=== PATIENT | male | born 1965 | race Caucasian/White ===

== ENCOUNTER 2022-12-02 05:33 | Inpatient (IN) | payer SELFPAY ==
[2022-12-02] MEDS ORDERED: Fentanyl 100 MCG/2 ML VIAL ONE ×2 (07:17→09:15)
[2022-12-02] MEDS ORDERED: Famotidine/PF 20 mg/2ml Vial ONE (07:17)
[2022-12-02] MEDS ORDERED: Midazolam HCl 2 mg/2 ml Vial ONE (07:21)
[2022-12-02] MEDS ORDERED: Levofloxacin 500 mg/D5W 100 ml Premix Bag ONE (07:28)
[2022-12-02] MEDS ORDERED: Albuterol HFA (OR) 200 PUFF INH ONE (07:34)
[2022-12-02] MEDS ORDERED: Succinylcholine Chloride 100 MG/5 ML SYRINGE FS ONE (07:34)
[2022-12-02] MEDS ORDERED: Ondansetron PF 4 MG/2 ML Vial ONE (07:34)
[2022-12-02] MEDS ORDERED: NEOSTIGMINE 3 MG/3 ML SYR 3 MG/3 ML SYRINGE ONE (07:34)
[2022-12-02] MEDS ORDERED: Lidocaine 1% PF 5 ML VIAL ONE (07:34)
[2022-12-02] MEDS ORDERED: Esmolol 100 MG/10 ML VIAL ONE (07:34)
[2022-12-02] MEDS ORDERED: Dexamethasone 20 MG/5 ML VIAL ONE (07:34)
[2022-12-02] MEDS ORDERED: Glycopyrrolate 0.2 MG/ML 5 ML SYRINGE ONE (07:34)
[2022-12-02] MEDS ORDERED: PROPOFOL 200 MG/20 ML VIAL ONE (07:34)
[2022-12-02] MEDS ORDERED: PHENYLEPHRINE-NS 100 MCG/ML 10 ML SYRINGE ONE (07:34)
[2022-12-02] MEDS ORDERED: Ketorolac Tromethamine 30 MG/ML VIAL ONE (07:34)
[2022-12-02] MEDS ORDERED: Metoclopramide HCl 10 MG/2 ML VIAL ONE (07:34)
[2022-12-02] MEDS ORDERED: Rocuronium Bromide 10 MG/ML (10ML VIAL) ONE (07:34)
[2022-12-02] MEDS ORDERED: Ondansetron HCl/PF 4 MG/2 ML Vial IVP PRN (09:03)
[2022-12-02] MEDS ORDERED: Promethazine HCl 25 MG/ML VIAL IM PRN (09:03)
[2022-12-02] MEDS ORDERED: Iopamidol-370 76% 500 ML 1 ML ONE (09:31)
[2022-12-02] MEDS ORDERED: Morphine 4 MG/ML VIAL SLOW IVP PRN (09:39)
[2022-12-02 14:36] VITALS: BMI 30.4
[2022-12-02] MEDS: Nicotine 14 MG PATCH TD SCH (14:53)
[2022-12-02] MEDS ORDERED: FLU VACC QS2022-23(6MOS UP)/PF 60 MCG/0.5 ML SYRINGE IM ONE (15:15)
[2022-12-02] MEDS ORDERED: cloNIDine 0.1 MG TAB PO PRN (15:36)
[2022-12-02 16:08] LABS: #Lymphocytes 0.6 thou/uL (1.20-3.40); #Monocytes 0.1 thou/uL (0.11-0.59); #Neutrophils 13.2 thou/uL (1.40-6.50); %Eosinophils 0.1 % (0.0-10.0); %Lymphocytes 4.1 % (21.0-51.0); %Monocytes 0.7 % (0.0-10.0); %Neutrophils 95.1 % (42.0-75.0); Hemoglobin 10.4 g/dL (14.0-18.0); Mean Corpuscular Hemoglobin 30.6 pg (27.0-31.0); Mean Corpuscular Volume 92.6 fl (78.0-98.0); Mean Platelet Volume 6.1 fL (7.4-10.4); Platelet Count 416 10x3/uL (130-400); RBC Distribution Width 11.3 % (11.5-14.5); Red Blood Cell (RBC) Count 3.42 mill/uL (4.70-6.10); White Blood Cell (WBC) Count 13.9 10x3/uL (4.8-10.8)
[2022-12-02 16:28] LABS: ALT (SGPT) 8 U/L (8-55); AST (SGOT) 12 U/L (5-34); Alkaline Phosphatase 59 U/L (40-110); Anion Gap 12 mmol/L (10-20); BUN (Urea Nitrogen) 13 mg/dL (8.4-25.7); Bilirubin, Total 0.4 mg/dL (0.2-1.2); Calc. Creatinine Clearance 107 mL/min (70-130); Carbon Dioxide 21 mmol/L (22-29); Chloride 104 mmol/L (98-107); Estimated GFR 84; Globulin 2.8 g/dL (2.4-3.5); Glucose 129 mg/dL (70-105); Potassium 3.6 mmol/L (3.5-5.1); Protein, Total 5.8 g/dL (6.0-8.3); Sodium 133 mmol/L (136-145)
[2022-12-02] MEDS: Trospium 20 MG TAB PO SCH (20:49)
[2022-12-03] MEDS: HYDROcodone/Acetaminophen 5/325 mg Tablet PO PRN ×2 (03:58→14:09)
[2022-12-03] MEDS: Trospium 20 MG TAB PO SCH (08:50)
[2022-12-03] MEDS: Nicotine 14 MG PATCH TD SCH (12:15)
[2022-12-03 12:29] VITALS: TEMP 98.6
[2022-12-03 16:50] VITALS: BP 148/74
== END 2022-12-03 20:23 | disposition home or self-care (01) | DRG 666 ==
LOC: SDC 05:33 → SJJU 13:21 → OBSVTOIN 12-03 12:30
PROVIDERS: ADMIT Urology; ATTEND Urology
PROC: 0TBB8ZZ Excision of Bladder, Via Natural or Artificial Opening Endoscopic (ICD-10-PCS; principal; 2022-12-02)
PROC: 0VB08ZZ Excision of Prostate, Via Natural or Artificial Opening Endoscopic (ICD-10-PCS; 2022-12-02)
PROC: 3E1K78Z Irrigation of Genitourinary Tract using Irrigating Substance, Via Natural or Artificial Opening (ICD-10-PCS; 2022-12-02)
DX: C67.2 Malignant neoplasm of lateral wall of bladder (principal); C79.82 Secondary malignant neoplasm of genital organs; Z23 Encounter for immunization; R31.0 Gross hematuria; I10 Essential (primary) hypertension; Z87.891 Personal history of nicotine dependence
CPT/HCPCS: 36415; 71260; 78306; 80053; 85025; 85610; 88307; 88341; 88342; 90471; 90686; A9503; G0008; J1100; J1885; J1956; J2250; J2405; J2704; J2765; J3010; Q9967; S0028

== ENCOUNTER 2022-12-30 17:36 | Inpatient (IN) | payer SELFPAY ==
[~2022-12-30 17:36] MED LIST: Iopamidol-370 76% 500 ML 1 ML ONE
[2022-12-30 18:21] LABS: #Basophils 0.1 thou/uL (0.0-0.2); #Eosinphils 0.3 thou/uL (0.0-0.7); #Lymphocytes 1.9 thou/uL (1.20-3.40); #Monocytes 0.9 thou/uL (0.11-0.59); #Neutrophils 8.3 thou/uL (1.40-6.50); %Basophils 0.8 % (0.0-1.0); %Eosinophils 2.5 % (0.0-10.0); %Lymphocytes 16.6 % (21.0-51.0); %Monocytes 7.7 % (0.0-10.0); %Neutrophils 72.4 % (42.0-75.0); Hemoglobin 8.8 g/dL (14.0-18.0); Mean Corpuscular HGB CONC 32.3 g/dL (32.0-36.0); Mean Corpuscular Hemoglobin 30.2 pg (27.0-31.0); Mean Corpuscular Volume 93.5 fl (78.0-98.0); Mean Platelet Volume 5.7 fL (7.4-10.4); Platelet Count 560 10x3/uL (130-400); RBC Distribution Width 12.6 % (11.5-14.5); Red Blood Cell (RBC) Count 2.91 mill/uL (4.70-6.10); White Blood Cell (WBC) Count 11.4 10x3/uL (4.8-10.8)
[2022-12-30 18:39] LABS: ALT (SGPT) 14 U/L (8-55); AST (SGOT) 17 U/L (5-34); Albumin 3.3 g/dL (3.5-5.0); Alkaline Phosphatase 81 U/L (40-110); Anion Gap 14 mmol/L (10-20); BUN (Urea Nitrogen) 17 mg/dL (8.4-25.7); Bilirubin, Total 0.2 mg/dL (0.2-1.2); Calc. Creatinine Clearance 0 mL/min (70-130); Calcium 8.8 mg/dL (7.8-10.44); Carbon Dioxide 24 mmol/L (22-29); Chloride 107 mmol/L (98-107); Estimated GFR 56; Globulin 3.7 g/dL (2.4-3.5); Glucose 77 mg/dL (70-105); Potassium 4.5 mmol/L (3.5-5.1); Sodium 140 mmol/L (136-145)
[2022-12-30] MEDS ORDERED: Ketorolac Tromethamine 30 MG/ML VIAL ONE (19:17)
[2022-12-30 20:53] LABS: Bacteria/HPF 2+ HPF (None Seen); Bilirubin Negative (Negative); Blood, Urine 3+ (Negative); Clarity Extra Turbid (Clear); Glucose, Urine (Dipstick) Normal (Negative); Ketone, Urine Negative (Negative); Leukocyte 500 Leu/uL (Negative); Nitrite 1+ (Negative); Protein, Urine (Dipstick) 300 mg/dL (Neg-Trace); RBC/HPF Greater than 50 HPF (0-3); Specific Gravity, Urine 1.027 (1.002-1.036); Urobilinogen Normal mg/dL (Less than 2); WBC/HPF Greater than 50 HPF (0-3); pH, Urine 6.5 (5.0-9.0)
[2022-12-30] MEDS ORDERED: Ondansetron ODT 4 MG TAB SL PRN (23:00)
[2022-12-30] MEDS ORDERED: Ondansetron PF 4 MG/2 ML Vial IVP PRN (23:00)
[2022-12-30] MEDS ORDERED: Acetaminophen 325 MG TAB PO PRN (23:00)
[2022-12-30 23:15] VITALS: BMI 30.4
[2022-12-31 06:49] LABS: #Eosinphils 0.7 thou/uL (0.0-0.7); #Lymphocytes 0.5 thou/uL (1.20-3.40); #Monocytes 0.8 thou/uL (0.11-0.59); #Neutrophils 8.4 thou/uL (1.40-6.50); %Basophils 0.3 % (0.0-1.0); %Eosinophils 6.6 % (0.0-10.0); %Lymphocytes 4.9 % (21.0-51.0); %Monocytes 7.3 % (0.0-10.0); %Neutrophils 80.9 % (42.0-75.0); Hemoglobin 8.4 g/dL (14.0-18.0); Mean Corpuscular HGB CONC 32.6 g/dL (32.0-36.0); Mean Corpuscular Hemoglobin 27.7 pg (27.0-31.0); Mean Corpuscular Volume 84.8 fl (78.0-98.0); Platelet Count 320 10x3/uL (130-400); RBC Distribution Width 14.8 % (11.5-14.5); Red Blood Cell (RBC) Count 3.02 mill/uL (4.70-6.10); White Blood Cell (WBC) Count 10.3 10x3/uL (4.8-10.8)
[2022-12-31 07:08] LABS: ALT (SGPT) Less than 7 U/L (8-55); AST (SGOT) 15 U/L (5-34); Albumin 3.4 g/dL (3.5-5.0); Alkaline Phosphatase 74 U/L (40-110); Anion Gap 10 mmol/L (10-20); BUN (Urea Nitrogen) 42 mg/dL (8.4-25.7); Bilirubin, Total 0.4 mg/dL (0.2-1.2); Calc. Creatinine Clearance 33 mL/min (70-130); Calcium 9.4 mg/dL (7.8-10.44); Carbon Dioxide 21 mmol/L (22-29); Chloride 114 mmol/L (98-107); Estimated GFR 21; Globulin 3.2 g/dL (2.4-3.5); Glucose 98 mg/dL (70-105); Iron 9 ug/dL (65-175); Iron Binding Capacity, Total 98 mcg/dL (261-462); Potassium 4.3 mmol/L (3.5-5.1); Protein, Total 6.6 g/dL (6.0-8.3); Sodium 141 mmol/L (136-145); Transferrin, Serum 78 mg/dL (174-364)
[2022-12-31] MEDS ORDERED: Polyethylene Glycol 3350 17 GM Packet PO SCH (10:00)
[2022-12-31 11:26] LABS: Chlam.trachomatis by PCR,Urine Not Detected (NotDetected); GC N.gonorrhoeae PCR,UrineVOID Not Detected (NotDetected)
[2022-12-31 11:50] LABS: Creatinine, Urine 52.1 mg/dL (63-166)
[2022-12-31] MEDS ORDERED: Acetaminophen 500 MG TAB PO PRN (16:25)
[2022-12-31] MEDS ORDERED: Ondansetron PF 4 MG/2 ML Vial IVP PRN (16:26)
[2022-12-31] MEDS ORDERED: Ondansetron ODT 4 MG TAB PO PRN (17:25)
[2022-12-31] MEDS: HYDROcodone/Acetaminophen 5/325 mg Tablet PO PRN (22:52)
[2022-12-31] MEDS: Melatonin 3 MG TAB PO PRN (22:53)
[2023-01-01] MEDS ORDERED: diphenhydrAMINE 25 MG CAP PO SCH ×2 (04:15→12:30)
[2023-01-01 06:31] LABS: #Basophils 0.1 thou/uL (0.0-0.2); #Eosinphils 0.3 thou/uL (0.0-0.7); #Lymphocytes 1.5 thou/uL (1.20-3.40); #Monocytes 0.9 thou/uL (0.11-0.59); #Neutrophils 7.3 thou/uL (1.40-6.50); %Basophils 0.7 % (0.0-1.0); %Eosinophils 2.8 % (0.0-10.0); %Lymphocytes 15.2 % (21.0-51.0); %Monocytes 9.3 % (0.0-10.0); Hemoglobin 8.6 g/dL (14.0-18.0); Mean Corpuscular HGB CONC 32.3 g/dL (32.0-36.0); Mean Corpuscular Hemoglobin 29.7 pg (27.0-31.0); Mean Corpuscular Volume 91.9 fl (78.0-98.0); Mean Platelet Volume 5.7 fL (7.4-10.4); Platelet Count 445 10x3/uL (130-400); RBC Distribution Width 12.5 % (11.5-14.5); Red Blood Cell (RBC) Count 2.89 mill/uL (4.70-6.10); White Blood Cell (WBC) Count 10.1 10x3/uL (4.8-10.8)
[2023-01-01 07:03] LABS: ALT (SGPT) 10 U/L (8-55); AST (SGOT) 13 U/L (5-34); Albumin 2.8 g/dL (3.5-5.0); Alkaline Phosphatase 74 U/L (40-110); Anion Gap 12 mmol/L (10-20); BUN (Urea Nitrogen) 13 mg/dL (8.4-25.7); Bilirubin, Total 0.2 mg/dL (0.2-1.2); Calc. Creatinine Clearance 84 mL/min (70-130); Calcium 8.6 mg/dL (7.8-10.44); Carbon Dioxide 25 mmol/L (22-29); Chloride 103 mmol/L (98-107); Estimated GFR 63; Globulin 3.4 g/dL (2.4-3.5); Glucose 93 mg/dL (70-105); Potassium 4.2 mmol/L (3.5-5.1); Protein, Total 6.2 g/dL (6.0-8.3); Sodium 136 mmol/L (136-145)
[2023-01-01] MEDS: HYDROcodone/Acetaminophen 5/325 mg Tablet PO PRN ×2 (07:52→15:58)
[2023-01-01] MEDS: Polyethylene Glycol 3350 17 GM Packet PO SCH (07:52)
[2023-01-01] MEDS ORDERED: diphenhydrAMINE 25 MG CAP PO PRN (19:38)
[2023-01-01] MEDS ORDERED: Acetaminophen/Codeine 30-300mg Tablet PO PRN (19:41)
[2023-01-01] MEDS: Melatonin 3 MG TAB PO PRN (21:19)
[2023-01-02 06:33] LABS: #Basophils 0.1 thou/uL (0.0-0.2); #Eosinphils 0.3 thou/uL (0.0-0.7); #Lymphocytes 2.1 thou/uL (1.20-3.40); #Neutrophils 7.8 thou/uL (1.40-6.50); %Basophils 0.5 % (0.0-1.0); %Eosinophils 2.8 % (0.0-10.0); %Lymphocytes 18.9 % (21.0-51.0); %Monocytes 8.8 % (0.0-10.0); Hemoglobin 8.9 g/dL (14.0-18.0); Mean Corpuscular HGB CONC 32.9 g/dL (32.0-36.0); Mean Corpuscular Hemoglobin 30.1 pg (27.0-31.0); Mean Corpuscular Volume 91.7 fl (78.0-98.0); Platelet Count 467 10x3/uL (130-400); RBC Distribution Width 12.5 % (11.5-14.5); Red Blood Cell (RBC) Count 2.95 mill/uL (4.70-6.10); White Blood Cell (WBC) Count 11.2 10x3/uL (4.8-10.8)
[2023-01-02 06:41] LABS: PTT 32.6 sec (22.9-36.1)
[2023-01-02 06:53] LABS: ALT (SGPT) 9 U/L (8-55); AST (SGOT) 15 U/L (5-34); Albumin 3.1 g/dL (3.5-5.0); Alkaline Phosphatase 72 U/L (40-110); Anion Gap 12 mmol/L (10-20); BUN (Urea Nitrogen) 12 mg/dL (8.4-25.7); Bilirubin, Total 0.2 mg/dL (0.2-1.2); Calc. Creatinine Clearance 79 mL/min (70-130); Calcium 8.7 mg/dL (7.8-10.44); Carbon Dioxide 23 mmol/L (22-29); Chloride 105 mmol/L (98-107); Estimated GFR 58; Globulin 3.4 g/dL (2.4-3.5); Glucose 87 mg/dL (70-105); Potassium 4.2 mmol/L (3.5-5.1); Protein, Total 6.5 g/dL (6.0-8.3); Sodium 136 mmol/L (136-145)
[2023-01-02] MEDS: Polyethylene Glycol 3350 17 GM Packet PO SCH (07:42)
[2023-01-02] MEDS ORDERED: Amlodipine 5 MG TAB PO SCH (10:15)
[2023-01-02] MEDS ORDERED: Ferrous Sulfate 325 MG TAB PO SCH (17:00)
[2023-01-02] MEDS ORDERED: diphenhydrAMINE 25 MG CAP PO SCH (21:30)
[2023-01-02] MEDS: Melatonin 3 MG TAB PO PRN (22:36)
[2023-01-03 07:34] LABS: #Eosinphils 0.2 thou/uL (0.0-0.7); #Lymphocytes 1.4 thou/uL (1.20-3.40); #Monocytes 0.7 thou/uL (0.11-0.59); #Neutrophils 6.4 thou/uL (1.40-6.50); %Basophils 0.5 % (0.0-1.0); %Eosinophils 2.2 % (0.0-10.0); %Lymphocytes 15.5 % (21.0-51.0); %Neutrophils 73.9 % (42.0-75.0); Mean Corpuscular HGB CONC 31.7 g/dL (32.0-36.0); Mean Corpuscular Hemoglobin 29.4 pg (27.0-31.0); Mean Corpuscular Volume 92.8 fl (78.0-98.0); Mean Platelet Volume 5.7 fL (7.4-10.4); Platelet Count 462 10x3/uL (130-400); RBC Distribution Width 12.4 % (11.5-14.5); Red Blood Cell (RBC) Count 3.05 mill/uL (4.70-6.10); White Blood Cell (WBC) Count 8.7 10x3/uL (4.8-10.8)
[2023-01-03] MEDS: Polyethylene Glycol 3350 17 GM Packet PO SCH (07:57)
[2023-01-03 08:02] LABS: ALT (SGPT) 8 U/L (8-55); AST (SGOT) 16 U/L (5-34); Alkaline Phosphatase 70 U/L (40-110); Anion Gap 13 mmol/L (10-20); BUN (Urea Nitrogen) 16 mg/dL (8.4-25.7); Bilirubin, Total 0.2 mg/dL (0.2-1.2); Calc. Creatinine Clearance 79 mL/min (70-130); Calcium 8.9 mg/dL (7.8-10.44); Carbon Dioxide 25 mmol/L (22-29); Chloride 103 mmol/L (98-107); Estimated GFR 58; Globulin 3.6 g/dL (2.4-3.5); Glucose 89 mg/dL (70-105); Protein, Total 6.6 g/dL (6.0-8.3); Sodium 137 mmol/L (136-145)
[2023-01-03 08:06] VITALS: BP 151/69; TEMP 98.1
[2023-01-03] MEDS ORDERED: Amlodipine 5 MG TAB PO SCH (09:00)
== END 2023-01-03 11:04 | disposition home or self-care (01) | DRG 687 ==
LOC: ERS 17:36 → T4-B 22:46 → OBSVTOIN 12-31 14:47
PROVIDERS: ADMIT Student in an Organized Health Care Education/Training Program; ATTEND Family Medicine
DX: C67.9 Malignant neoplasm of bladder, unspecified (principal); C77.5 Secondary and unspecified malignant neoplasm of intrapelvic lymph nodes; N13.6 Pyonephrosis; Z20.822 Contact with and (suspected) exposure to COVID-19; N45.1 Epididymitis; F17.210 Nicotine dependence, cigarettes, uncomplicated; I10 Essential (primary) hypertension; B96.5 Pseudomonas (aeruginosa) (mallei) (pseudomallei) as the cause of diseases classified elsewhere; D50.9 Iron deficiency anemia, unspecified; D63.8 Anemia in other chronic diseases classified elsewhere; Z79.899 Other long term (current) drug therapy; Z98.890 Other specified postprocedural states
CPT/HCPCS: 36415; 74177; 76870; 80053; 81003; 81015; 82570; 82728; 83540; 83550; 84300; 84466; 85025; 85610; 85730; 87077; 87086; 87186; 87491; 87591; 93976; 96372; 96374; G0378; J1650; J1885; Q9967; U0003; U0005

== ENCOUNTER 2023-01-06 07:02 | Day surgery (SDC) | payer SELFPAY ==
[2023-01-03 09:02] VITALS: BMI 30.3
[2023-01-06] MEDS ORDERED: Fentanyl 100 MCG/2 ML VIAL ONE (07:44)
[2023-01-06] MEDS ORDERED: Midazolam HCl 2 mg/2 ml Vial ONE (07:44)
[2023-01-06] MEDS ORDERED: Lidocaine 1% PF 5 ML VIAL ONE (07:45)
[2023-01-06] MEDS ORDERED: Sodium Bicarbonate 2.5 MEQ/5 ML VIAL ONE (07:45)
[2023-01-06] MEDS ORDERED: diphenhydrAMINE 25 MG CAP ONE (09:35)
[2023-01-06 09:55] VITALS: BP 125/74; TEMP 99
[2023-01-06] MEDS ORDERED: Iopamidol 300 61% 100 ML VIAL FS ONE (10:53)
== END 2023-01-06 11:40 | disposition home or self-care (01) ==
LOC: SPEC 07:02
PROVIDERS: ATTEND Urology
PROC: 0T9130Z Drainage of Left Kidney with Drainage Device, Percutaneous Approach (ICD-10-PCS; principal; 2023-01-06)
DX: N13.1 Hydronephrosis with ureteral stricture, not elsewhere classified (principal); C67.9 Malignant neoplasm of bladder, unspecified; N13.4 Hydroureter; I10 Essential (primary) hypertension; F17.210 Nicotine dependence, cigarettes, uncomplicated; N45.1 Epididymitis; N17.9 Acute kidney failure, unspecified; D64.9 Anemia, unspecified; Z79.2 Long term (current) use of antibiotics; Z79.899 Other long term (current) drug therapy
CPT/HCPCS: 50430; 50432; 74485; C1729; J2250; J3010

== ENCOUNTER 2023-01-19 21:09 | Emergency (ER) | payer SELFPAY ==
[2023-01-19 23:30] LABS: #Eosinphils 0.5 thou/uL (0.0-0.7); #Lymphocytes 1.5 thou/uL (1.20-3.40); #Monocytes 0.9 thou/uL (0.11-0.59); #Neutrophils 10.2 thou/uL (1.40-6.50); %Basophils 0.3 % (0.0-1.0); %Eosinophils 3.8 % (0.0-10.0); %Lymphocytes 11.5 % (21.0-51.0); %Monocytes 6.8 % (0.0-10.0); %Neutrophils 77.6 % (42.0-75.0); Hemoglobin 8.2 g/dL (14.0-18.0); Mean Corpuscular Hemoglobin 27.6 pg (27.0-31.0); Mean Corpuscular Volume 88.9 fl (78.0-98.0); Mean Platelet Volume 5.7 fL (7.4-10.4); Platelet Count 556 10x3/uL (130-400); RBC Distribution Width 13.2 % (11.5-14.5); Red Blood Cell (RBC) Count 2.96 mill/uL (4.70-6.10); White Blood Cell (WBC) Count 13.2 10x3/uL (4.8-10.8)
[2023-01-19 23:52] LABS: ALT (SGPT) 12 U/L (8-55); AST (SGOT) 18 U/L (5-34); Albumin 2.9 g/dL (3.5-5.0); Alkaline Phosphatase 74 U/L (40-110); Anion Gap 13 mmol/L (10-20); BUN (Urea Nitrogen) 18 mg/dL (8.4-25.7); Bilirubin, Total Less than 0.2 mg/dL (0.2-1.2); Calc. Creatinine Clearance 0 mL/min (70-130); Calcium 8.8 mg/dL (7.8-10.44); Carbon Dioxide 24 mmol/L (22-29); Chloride 105 mmol/L (98-107); Estimated GFR 76; Globulin 3.6 g/dL (2.4-3.5); Glucose 110 mg/dL (70-105); Potassium 4.2 mmol/L (3.5-5.1); Protein, Total 6.5 g/dL (6.0-8.3); Sodium 138 mmol/L (136-145)
[2023-01-20 00:57] LABS: Bacteria/HPF 3+ HPF (None Seen); Bilirubin 1+ (Negative); Blood, Urine 3+ (Negative); Clarity Clear (Clear); Glucose, Urine (Dipstick) Normal (Negative); Ketone, Urine Negative (Negative); Leukocyte 500 Leu/uL (Negative); Nitrite 2+ (Negative); Protein, Urine (Dipstick) 70 mg/dL (Neg-Trace); RBC/HPF Greater than 50 HPF (0-3); Specific Gravity, Urine 1.016 (1.002-1.036); Squamous Epithelial None Seen HPF (0-3); Urobilinogen Normal mg/dL (Less than 2); WBC/HPF 21-50 HPF (0-3); pH, Urine 6.5 (5.0-9.0)
== END 2023-01-19 22:15 | disposition home or self-care (01) ==
LOC: ERS 21:09
DX: N30.00 Acute cystitis without hematuria (principal); N43.3 Hydrocele, unspecified; R60.0 Localized edema
CPT/HCPCS: 36415; 76870; 80053; 81003; 81015; 85025; 93976

== ENCOUNTER → 2023-02-27 | Day surgery (SDC) | payer SELFPAY | END | disposition home or self-care (01) | LOC: SPEC 08:45 | PROVIDERS: ATTEND Urology | PROC: 0T25X0Z Change Drainage Device in Kidney, External Approach (ICD-10-PCS; principal; 2023-02-27) | DX: Z46.6 Encounter for fitting and adjustment of urinary device (principal); N32.9 Bladder disorder, unspecified; N13.1 Hydronephrosis with ureteral stricture, not elsewhere classified | CPT/HCPCS: 50431; 50435 ==

== ENCOUNTER 2023-03-17 10:24 | Inpatient (IN) | payer SELFPAY ==
[2023-03-17 11:29] LABS: Hemoglobin 7.3 g/dL (14.0-18.0); Mean Corpuscular HGB CONC 31.8 g/dL (32.0-36.0); Mean Corpuscular Volume 84.9 fl (78.0-98.0); Mean Platelet Volume 7.2 fL (7.4-10.4); Platelet Count 266 10x3/uL (130-400); RBC Distribution Width 18.9 % (11.5-14.5); Red Blood Cell (RBC) Count 2.71 mill/uL (4.70-6.10); White Blood Cell (WBC) Count 20.1 10x3/uL (4.8-10.8)
[2023-03-17 11:47] LABS: ALT (SGPT) 37 U/L (8-55); AST (SGOT) 31 U/L (5-34); Albumin 2.6 g/dL (3.5-5.0); Alkaline Phosphatase 137 U/L (40-110); Anion Gap 17 mmol/L (10-20); BUN (Urea Nitrogen) 31 mg/dL (8.4-25.7); Bilirubin, Total 1.3 mg/dL (0.2-1.2); Calc. Creatinine Clearance 0 mL/min (70-130); Calcium 7.8 mg/dL (7.8-10.44); Carbon Dioxide 20 mmol/L (22-29); Chloride 103 mmol/L (98-107); Estimated GFR 22; Globulin 2.9 g/dL (2.4-3.5); Glucose 86 mg/dL (70-105); Potassium 3.6 mmol/L (3.5-5.1); Protein, Total 5.5 g/dL (6.0-8.3); Sodium 136 mmol/L (136-145)
[2023-03-17 12:09] LABS: CKMB 0.4 ng/mL (0-6.6)
[2023-03-17 12:15] LABS: Band 55 % (5-11); Hypochromia SLIGHT = 6-15 cells (100X) (0-5/hpf); Lymphocytes 2 % (21-51); MDiff Complete? YES; Metamyelocyte 2 % (0-0); Neutrophil 41 % (42-75); Platelet Morphology Comment Appears Adequate; Polychromasia SLIGHT = 2-3 cells (100X) (0-2/hpf); Vacuoles MODERATE
[2023-03-17] MEDS ORDERED: Morphine 2 MG/ML VIAL ONE (13:09)
[2023-03-17] MEDS ORDERED: Cefepime 2 GM VIAL ONE (13:46)
[2023-03-17] MEDS ORDERED: Vancomycin 1 GM/200 ML (FROZEN) BAG ONE (14:50)
[2023-03-17] MEDS ORDERED: Vancomycin 1 GM in Premix Bag 1 BAG IVPB SCH (15:00)
[2023-03-17] MEDS ORDERED: Sodium Chloride 0.9% 1,000 ML IV SCH (17:00)
[2023-03-17] MEDS ORDERED: Ondansetron ODT 4 MG TAB PO PRN (17:06)
[2023-03-17] MEDS ORDERED: Acetaminophen 325 MG TAB PO PRN (17:06)
[2023-03-17] MEDS ORDERED: Senokot S 8.6-50 MG TAB PO PRN (17:06)
[2023-03-17] MEDS ORDERED: Bisacodyl 5 MG TAB PO PRN (17:06)
[2023-03-17] MEDS ORDERED: Ondansetron PF 4 MG/2 ML Vial IVP PRN (17:06)
[2023-03-17 17:33] VITALS: BMI 34.9
[2023-03-17 18:28] LABS: Anisocytosis SLIGHT = 6-15 cells (100X) (0-5/hpf); Band 35 % (5-11); Eosinophils 1 % (0-10); Hemoglobin 6.5 g/dL (14.0-18.0); Lymphocytes 3 % (21-51); MDiff Complete? YES; Mean Corpuscular HGB CONC 32.8 g/dL (32.0-36.0); Mean Corpuscular Hemoglobin 27.9 pg (27.0-31.0); Mean Corpuscular Volume 85.1 fl (78.0-98.0); Metamyelocyte 4 % (0-0); Monocytes 1 % (0-10); Neutrophil 56 % (42-75); Platelet Count 219 10x3/uL (130-400); Platelet Morphology Comment Appears Adequate; Polychromasia MODERATE = 3-4 cells (100X) (0-2/hpf); Red Blood Cell (RBC) Count 2.34 mill/uL (4.70-6.10); Toxic Granulation SLIGHT; Vacuoles SLIGHT
[2023-03-17] MEDS: Sodium Chloride 0.9% 1,000 ML IV SCH (18:46)
[2023-03-17] MEDS: Tamsulosin HCl 0.4 MG CAP PO SCH (20:18)
[2023-03-17 20:30] LABS: Bilirubin Moderate (Negative); Blood, Urine Large (Negative); Glucose, Urine (Dipstick) Negative (Negative); Ketone, Urine Trace mg/dL (Negative); Leukocyte Large (Negative); Nitrite Positive (Negative); Protein, Urine (Dipstick) > or equal to 300 mg/dL (Neg-Trace)
[2023-03-17 20:41] LABS: Clarity Cloudy (Clear)
[2023-03-17 20:42] LABS: CAUTI Indications for Culture Acute Hematuria; RBC/HPF Greater than 50 HPF (0-3); WBC/HPF Greater Than 50 HPF (0-3)
[2023-03-17 20:43] LABS: Bacteria/HPF 4+ HPF (None Seen)
[2023-03-17 20:44] LABS: Squamous Epithelial 0-3 HPF (0-3)
[2023-03-17 20:45] LABS: Urine Culture Reflex Yes Yes
[2023-03-17 21:22] LABS: Hemoglobin 6.4 g/dL (14.0-18.0); Mean Corpuscular HGB CONC 32.5 g/dL (32.0-36.0); Mean Corpuscular Hemoglobin 27.7 pg (27.0-31.0); Mean Corpuscular Volume 85.2 fl (78.0-98.0); Mean Platelet Volume 6.9 fL (7.4-10.4); Platelet Count 221 10x3/uL (130-400); White Blood Cell (WBC) Count 26.3 10x3/uL (4.8-10.8)
[2023-03-17 21:23] LABS: Band 46 % (5-11); Hypochromia SLIGHT = 6-15 cells (100X) (0-5/hpf); Lymphocytes 2 % (21-51); MDiff Complete? YES; Metamyelocyte 1 % (0-0); Monocytes 7 % (0-10); Neutrophil 43 % (42-75); Platelet Morphology Comment Appears Adequate; Promyelocytes 1 % (0-0)
[2023-03-17 22:09] LABS: CKMB 0.5 ng/mL (0-6.6)
[2023-03-18] MEDS: Sodium Chloride 0.9% 1,000 ML IV SCH ×2 (01:07→09:18)
[2023-03-18] MEDS ORDERED: Cefepime 1 GM in Sodium Chloride 0.9% 100 ML IVPB SCH ×2 (02:00→13:00)
[2023-03-18 02:19] LABS: Hemoglobin 6.9 g/dL (14.0-18.0); Platelet Count 229 10x3/uL (130-400)
[2023-03-18 02:50] LABS: Potassium 4.2 mmol/L (3.5-5.1); Sodium 137 mmol/L (136-145)
[2023-03-18 02:51] LABS: ALT (SGPT) 36 U/L (8-55); AST (SGOT) 29 U/L (5-34); Albumin 2.3 g/dL (3.5-5.0); Alkaline Phosphatase 137 U/L (40-110); Anion Gap 14 mmol/L (10-20); BUN (Urea Nitrogen) 39 mg/dL (8.4-25.7); Calc. Creatinine Clearance 42 mL/min (70-130); Calcium 7.7 mg/dL (7.8-10.44); Carbon Dioxide 21 mmol/L (22-29); Chloride 106 mmol/L (98-107); Estimated GFR 23; Globulin 2.7 g/dL (2.4-3.5); Glucose 85 mg/dL (70-105)
[2023-03-18 02:58] LABS: Band 37 % (5-11); Hemoglobin 7.2 g/dL (14.0-18.0); Hypochromia SLIGHT = 6-15 cells (100X) (0-5/hpf); MDiff Complete? YES; Mean Corpuscular HGB CONC 33.2 g/dL (32.0-36.0); Mean Corpuscular Hemoglobin 28.2 pg (27.0-31.0); Mean Corpuscular Volume 85.1 fl (78.0-98.0); Mean Platelet Volume 7.1 fL (7.4-10.4); Monocytes 5 % (0-10); Neutrophil 58 % (42-75); Platelet Count 227 10x3/uL (130-400); Platelet Morphology Comment Appears Adequate; RBC Distribution Width 18.9 % (11.5-14.5); Red Blood Cell (RBC) Count 2.54 mill/uL (4.70-6.10); White Blood Cell (WBC) Count 27.3 10x3/uL (4.8-10.8)
[2023-03-18] MEDS: Acetaminophen/Codeine 30-300mg Tablet PO PRN (09:13)
[2023-03-18] MEDS: predniSONE 5 MG TAB PO SCH (09:14)
[2023-03-18 10:19] LABS: Hemoglobin 8.1 g/dL (14.0-18.0); Mean Corpuscular HGB CONC 33.7 g/dL (32.0-36.0); Mean Corpuscular Hemoglobin 28.8 pg (27.0-31.0); Mean Corpuscular Volume 85.3 fl (78.0-98.0); Platelet Count 230 10x3/uL (130-400); RBC Distribution Width 18.4 % (11.5-14.5); Red Blood Cell (RBC) Count 2.81 mill/uL (4.70-6.10); White Blood Cell (WBC) Count 28.2 10x3/uL (4.8-10.8)
[2023-03-18 11:07] LABS: Band 42 % (5-11); Dohle Bodies SLIGHT; Lymphocytes 2 % (21-51); MDiff Complete? YES; Monocytes 1 % (0-10); Neutrophil 55 % (42-75); Platelet Morphology Comment Appears Adequate; Polychromasia SLIGHT = 2-3 cells (100X) (0-2/hpf); Toxic Granulation SLIGHT; Vacuoles SLIGHT
[2023-03-18] MEDS: metroNIDAZOLE 500 MG in Premix Bag 1 BAG IVPB SCH ×2 (13:06→22:49)
[2023-03-18 14:49] LABS: Creatinine, Urine 34.85 mg/dL (63-166)
[2023-03-18] MEDS: Albumin 25% 25 GM/100 ML BOT IVPB SCH ×2 (15:49→20:39)
[2023-03-18 17:22] LABS: Hemoglobin 7.7 g/dL (14.0-18.0)
[2023-03-18] MEDS: Tamsulosin HCl 0.4 MG CAP PO SCH (20:39)
[2023-03-19] MEDS: Cefepime 2 GM in Sodium Chloride 0.9% 100 ML IVPB SCH ×2 (00:21→12:00)
[2023-03-19] MEDS: Acetaminophen/Codeine 30-300mg Tablet PO PRN ×3 (00:25→20:10)
[2023-03-19 04:58] LABS: ALT (SGPT) 27 U/L (8-55); AST (SGOT) 23 U/L (5-34); Albumin 2.6 g/dL (3.5-5.0); Alkaline Phosphatase 160 U/L (40-110); Anion Gap 13 mmol/L (10-20); BUN (Urea Nitrogen) 46 mg/dL (8.4-25.7); Bilirubin, Total 0.7 mg/dL (0.2-1.2); Calc. Creatinine Clearance 52 mL/min (70-130); Carbon Dioxide 18 mmol/L (22-29); Chloride 110 mmol/L (98-107); Estimated GFR 30; Globulin 2.5 g/dL (2.4-3.5); Glucose 112 mg/dL (70-105); Magnesium 2.4 mg/dL (1.6-2.6); Potassium 3.6 mmol/L (3.5-5.1); Protein, Total 5.1 g/dL (6.0-8.3); Sodium 137 mmol/L (136-145)
[2023-03-19 05:11] LABS: Band 14 % (5-11); Eosinophils 1 % (0-10); Lymphocytes 10 % (21-51); MDiff Complete? YES; Mean Corpuscular HGB CONC 33.6 g/dL (32.0-36.0); Mean Corpuscular Hemoglobin 28.5 pg (27.0-31.0); Mean Corpuscular Volume 84.9 fl (78.0-98.0); Mean Platelet Volume 7.4 fL (7.4-10.4); Monocytes 2 % (0-10); Neutrophil 73 % (42-75); Platelet Count 239 10x3/uL (130-400); Platelet Morphology Comment Appears Adequate; RBC Distribution Width 18.3 % (11.5-14.5); RBC Morphology Normal; White Blood Cell (WBC) Count 24.2 10x3/uL (4.8-10.8)
[2023-03-19] MEDS: metroNIDAZOLE 500 MG in Premix Bag 1 BAG IVPB SCH (05:19)
[2023-03-19] MEDS ORDERED: Albumin 25% 25 GM/100 ML BOT IVPB SCH (06:45)
[2023-03-19 07:58] LABS: Iron 68 ug/dL (65-175); Iron Binding Capacity, Total 199 mcg/dL (261-462)
[2023-03-19] MEDS: Sodium Bicarbonate Tab 325 MG TAB PO SCH ×3 (08:23→20:09)
[2023-03-19] MEDS: predniSONE 5 MG TAB PO SCH (08:23)
[2023-03-19] MEDS: Albumin 25% 25 GM/100 ML BOT IVPB SCH ×3 (11:58→23:07)
[2023-03-19] MEDS: Temazepam 15 MG CAP PO PRN (20:09)
[2023-03-19] MEDS: Tamsulosin HCl 0.4 MG CAP PO SCH (20:10)
[2023-03-19] MEDS ORDERED: fentaNYL 50 mcg/hour Patch TD SCH (21:00)
[2023-03-20] MEDS: Cefepime 2 GM in Sodium Chloride 0.9% 100 ML IVPB SCH ×2 (00:07→13:17)
[2023-03-20 05:02] LABS: Hemoglobin 7.8 g/dL (14.0-18.0); Mean Corpuscular HGB CONC 32.4 g/dL (32.0-36.0); Mean Corpuscular Hemoglobin 27.6 pg (27.0-31.0); Mean Corpuscular Volume 85.1 fl (78.0-98.0); Mean Platelet Volume 7.3 fL (7.4-10.4); Platelet Count 263 10x3/uL (130-400); RBC Distribution Width 18.6 % (11.5-14.5); Red Blood Cell (RBC) Count 2.82 mill/uL (4.70-6.10); White Blood Cell (WBC) Count 13.2 10x3/uL (4.8-10.8)
[2023-03-20] MEDS: Albumin 25% 25 GM/100 ML BOT IVPB SCH ×3 (05:11→22:22)
[2023-03-20 05:14] LABS: Anion Gap 14 mmol/L (10-20); BUN (Urea Nitrogen) 36 mg/dL (8.4-25.7); Calc. Creatinine Clearance 65 mL/min (70-130); Calcium 8.3 mg/dL (7.8-10.44); Carbon Dioxide 19 mmol/L (22-29); Chloride 110 mmol/L (98-107); Estimated GFR 39; Glucose 85 mg/dL (70-105); Potassium 3.8 mmol/L (3.5-5.1); Sodium 139 mmol/L (136-145)
[2023-03-20 05:26] LABS: Band 4 % (5-11); Eosinophils 2 % (0-10); Lymphocytes 5 % (21-51); MDiff Complete? YES; Monocytes 1 % (0-10); Myelocyte 1 % (0-0); Neutrophil 87 % (42-75)
[2023-03-20] MEDS: Sodium Bicarbonate Tab 325 MG TAB PO SCH ×3 (08:34→20:29)
[2023-03-20] MEDS: predniSONE 5 MG TAB PO SCH (08:34)
[2023-03-20] MEDS: Acetaminophen/Codeine 30-300mg Tablet PO PRN ×2 (11:28→20:27)
[2023-03-20] MEDS ORDERED: Dextrose 5%-Lactated Ringers 1,000 ML IV SCH (13:15)
[2023-03-20] MEDS ORDERED: Megestrol Acetate 800 MG/20 ML UDCUP PO SCH (13:15)
[2023-03-20] MEDS: Tamsulosin HCl 0.4 MG CAP PO SCH (20:27)
[2023-03-20] MEDS: Temazepam 15 MG CAP PO PRN (22:22)
[2023-03-21] MEDS: Cefepime 2 GM in Sodium Chloride 0.9% 100 ML IVPB SCH ×2 (02:53→12:35)
[2023-03-21 04:36] LABS: Hemoglobin 8.2 g/dL (14.0-18.0); Mean Corpuscular HGB CONC 32.1 g/dL (32.0-36.0); Mean Corpuscular Hemoglobin 27.5 pg (27.0-31.0); Mean Corpuscular Volume 85.6 fl (78.0-98.0); Mean Platelet Volume 7.5 fL (7.4-10.4); Platelet Count 236 10x3/uL (130-400); Red Blood Cell (RBC) Count 2.98 mill/uL (4.70-6.10)
[2023-03-21 04:52] LABS: Anion Gap 14 mmol/L (10-20); BUN (Urea Nitrogen) 32 mg/dL (8.4-25.7); Calc. Creatinine Clearance 83 mL/min (70-130); Calcium 8.5 mg/dL (7.8-10.44); Carbon Dioxide 20 mmol/L (22-29); Chloride 110 mmol/L (98-107); Estimated GFR 53; Glucose 114 mg/dL (70-105); Potassium 3.6 mmol/L (3.5-5.1); Sodium 140 mmol/L (136-145)
[2023-03-21 05:43] LABS: Anisocytosis SLIGHT = 6-15 cells (100X) (0-5/hpf); Eosinophils 5 % (0-10); Lymphocytes 10 % (21-51); MDiff Complete? YES; Monocytes 1 % (0-10); Neutrophil 83 % (42-75); Platelet Morphology Comment Appears Adequate; Polychromasia SLIGHT = 2-3 cells (100X) (0-2/hpf); Vacuoles SLIGHT
[2023-03-21] MEDS: Albumin 25% 25 GM/100 ML BOT IVPB SCH (06:02)
[2023-03-21] MEDS: predniSONE 5 MG TAB PO SCH (08:21)
[2023-03-21] MEDS: Tamsulosin HCl 0.4 MG CAP PO SCH ×2 (08:21→20:48)
[2023-03-21] MEDS: Finasteride 5 MG TAB PO SCH (08:21)
[2023-03-21] MEDS: Sodium Bicarbonate Tab 325 MG TAB PO SCH ×3 (08:22→20:48)
[2023-03-21] MEDS: Acetaminophen/Codeine 30-300mg Tablet PO PRN (16:44)
[2023-03-21] MEDS: Temazepam 15 MG CAP PO PRN (20:50)
[2023-03-22] MEDS: Cefepime 2 GM in Sodium Chloride 0.9% 100 ML IVPB SCH ×2 (01:17→12:44)
[2023-03-22 04:54] LABS: Calcium 8.5 mg/dL (7.8-10.44); Chloride 112 mmol/L (98-107); Potassium 3.9 mmol/L (3.5-5.1); Sodium 139 mmol/L (136-145)
[2023-03-22 05:17] LABS: Albumin 3.1 g/dL (3.5-5.0)
[2023-03-22 05:19] LABS: Glucose 99 mg/dL (70-105)
[2023-03-22 05:21] LABS: Carbon Dioxide 13 mmol/L (22-29)
[2023-03-22 05:22] LABS: Phosphorus 3.4 mg/dL (2.3-4.7)
[2023-03-22 05:23] LABS: BUN (Urea Nitrogen) 25 mg/dL (8.4-25.7); BUN/Creatinine Ratio 21.74; Calc. Creatinine Clearance 111 mL/min (70-130); Estimated GFR 74
[2023-03-22 05:26] LABS: Anion Gap 18 mmol/L (10-20)
[2023-03-22 05:30] LABS: Hemoglobin 8.1 g/dL (14.0-18.0); Mean Corpuscular HGB CONC 32.3 g/dL (32.0-36.0); Mean Corpuscular Hemoglobin 27.7 pg (27.0-31.0); Mean Corpuscular Volume 85.7 fl (78.0-98.0); Mean Platelet Volume 8.7 fL (7.4-10.4); Platelet Count 185 10x3/uL (130-400); RBC Distribution Width 19.3 % (11.5-14.5); Red Blood Cell (RBC) Count 2.93 mill/uL (4.70-6.10); White Blood Cell (WBC) Count 12.7 10x3/uL (4.8-10.8)
[2023-03-22 05:31] LABS: Eosinophils 2 % (0-10); Lymphocytes 14 % (21-51); MDiff Complete? YES; Monocytes 5 % (0-10); Neutrophil 79 % (42-75); Toxic Granulation SLIGHT
[2023-03-22] MEDS: Acetaminophen/Codeine 30-300mg Tablet PO PRN (06:52)
[2023-03-22] MEDS: Finasteride 5 MG TAB PO SCH (08:26)
[2023-03-22] MEDS: Tamsulosin HCl 0.4 MG CAP PO SCH (08:26)
[2023-03-22] MEDS: Sodium Bicarbonate Tab 325 MG TAB PO SCH (08:26)
[2023-03-22] MEDS: predniSONE 5 MG TAB PO SCH (08:26)
[2023-03-22 11:54] VITALS: BP 143/70; TEMP 98.6
== END 2023-03-22 14:09 | disposition home or self-care (01) | DRG 698 ==
LOC: ERS 10:24 → 2SW 16:57 → OBSVTOIN 19:15 → T4-A 21:43 → 2SW 21:43
PROVIDERS: ADMIT Internal Medicine; ATTEND Internal Medicine
PROC: 30233N1 Transfusion of Nonautologous Red Blood Cells into Peripheral Vein, Percutaneous Approach (ICD-10-PCS; principal; 2023-03-17)
DX: T83.518A Infection and inflammatory reaction due to other urinary catheter, initial encounter (principal); A41.52 Sepsis due to Pseudomonas; R57.8 Other shock; R65.20 Severe sepsis without septic shock; C79.9 Secondary malignant neoplasm of unspecified site; N17.9 Acute kidney failure, unspecified; N13.6 Pyonephrosis; I24.8 Other forms of acute ischemic heart disease; D62 Acute posthemorrhagic anemia; E87.20 Acidosis, unspecified; Z51.5 Encounter for palliative care; C67.9 Malignant neoplasm of bladder, unspecified; D64.9 Anemia, unspecified; E86.9 Volume depletion, unspecified; R31.0 Gross hematuria; F17.210 Nicotine dependence, cigarettes, uncomplicated; Z79.52 Long term (current) use of systemic steroids; Z79.899 Other long term (current) drug therapy; Y84.6 Urinary catheterization as the cause of abnormal reaction of the patient, or of later complication, without mention of misadventure at the time of the procedure
CPT/HCPCS: 36415; 36430; 51702; 71045; 74176; 76705; 76770; 80048; 80053; 80069; 80202; 81001; 82040; 82553; 82570; 82728; 83540; 83550; 83605; 83735; 84156; 84300; 84484; 84540; 85025; 86140; 86850; 86900; 86901; 87040; 87070; 87077; 87086; 87149; 87186; 87205; 93005; 96361; 96365; 96366; 96368; 96375; G0378; J0692; J2272; J3370-JW; J3490; J7050; J7512; P9016; P9047

== ENCOUNTER 2023-06-17 06:46 | Day surgery (SDC) | payer OTHER, SELFPAY ==
[2023-06-17] MEDS ORDERED: Iopamidol 300 61% 30 ML VIAL ONE (10:53)
== END 2023-06-17 09:45 | disposition home or self-care (01) ==
LOC: SPEC 06:46
PROVIDERS: ATTEND Urology
DX: C67.4 Malignant neoplasm of posterior wall of bladder (principal); N13.30 Unspecified hydronephrosis
CPT/HCPCS: 50431; 50435

== ENCOUNTER 2023-07-09 09:56 | Outpatient (CLI) | payer OTHER ==
[~2023-07-09 09:56] MED LIST changes: -Iopamidol-370 76% 500 ML 1 ML ONE; +Iopamidol-370 76% 500 ML MDV (1 ML CHARGE) ONE
== END 2023-07-09 09:57 | disposition home or self-care (01) ==
LOC: BICCT 09:56
PROVIDERS: ATTEND Internal Medicine Hematology & Oncology
DX: C67.4 Malignant neoplasm of posterior wall of bladder (principal)
CPT/HCPCS: 74177; Q9967

== ENCOUNTER 2023-07-12 22:35 | Emergency (ER) | payer OTHER ==
[2023-07-12 23:57] LABS: #Basophils 0.1 thou/uL (0.0-0.2); #Eosinphils 1.1 thou/uL (0.0-0.7); #Monocytes 0.9 thou/uL (0.11-0.59); %Basophils 1.1 % (0.0-1.0); %Eosinophils 12.9 % (0.0-10.0); %Lymphocytes 13.8 % (21.0-51.0); %Monocytes 10.9 % (0.0-10.0); %Neutrophils 61.2 % (42.0-75.0); Hematocrit 27.4 % (42.0-52.0); Mean Corpuscular HGB CONC 32.8 g/dL (32.0-36.0); Mean Corpuscular Hemoglobin 30.5 pg (27.0-31.0); Mean Corpuscular Volume 92.9 fl (78.0-98.0); Mean Platelet Volume 8.9 fL (7.4-10.4); Platelet Count 235 10x3/uL (130-400); Red Blood Cell (RBC) Count 2.95 mill/uL (4.70-6.10); White Blood Cell (WBC) Count 8.2 10x3/uL (4.8-10.8)
[2023-07-13 00:11] LABS: INR-International Normal Ratio 1.2; PTT 35.4 sec (22.9-36.1); Prothrombin Time 15.5 sec (12.0-14.7)
[2023-07-13 00:21] LABS: ALT (SGPT) 9 U/L (8-55); AST (SGOT) 14 U/L (5-34); Albumin 3.1 g/dL (3.5-5.0); Alkaline Phosphatase 60 U/L (40-110); Anion Gap 11 mmol/L (10-20); BUN (Urea Nitrogen) 14 mg/dL (8.4-25.7); Bilirubin, Total 0.2 mg/dL (0.2-1.2); Calc. Creatinine Clearance 0 mL/min (70-130); Calcium 8.4 mg/dL (7.8-10.44); Carbon Dioxide 26 mmol/L (22-29); Chloride 108 mmol/L (98-107); Estimated GFR 77; Globulin 2.4 g/dL (2.4-3.5); Glucose 98 mg/dL (70-105); Potassium 3.9 mmol/L (3.5-5.1); Protein, Total 5.5 g/dL (6.0-8.3); Sodium 141 mmol/L (136-145)
[2023-07-13 00:21] LABS: Bacteria/HPF 4+ HPF (None Seen); Bilirubin Negative (Negative); Blood, Urine 3+ (Negative); CAUTI Indications for Culture Immunosuppressed; Clarity Extra Turbid (Clear); Glucose, Urine (Dipstick) Normal (Negative); Ketone, Urine Negative (Negative); Leukocyte 500 Leu/uL (Negative); Nitrite 2+ (Negative); Protein, Urine (Dipstick) 300 mg/dL (Neg-Trace); RBC/HPF Greater than 50 HPF (0-3); Specific Gravity, Urine 1.021 (1.002-1.036); Squamous Epithelial None Seen HPF (0-3); Urobilinogen Normal mg/dL (Less than 2); WBC/HPF Greater than 50 HPF (0-3); pH, Urine 6.5 (5.0-9.0)
[2023-07-13 00:22] LABS: Urine Culture Reflex Yes Yes
[2023-07-13 00:23] LABS: Troponin I 0.012 ng/mL (< 0.028)
[2023-07-13] MEDS ORDERED: cefTRIAXone (ROCEPHIN) 2 GM VIAL ONE (01:08)
[2023-07-13 01:46] LABS: SARS-CoV-2 NAA Rapid Test Not Detected (NotDetected)
== END 2023-07-13 02:51 | disposition home or self-care (01) ==
LOC: ERS 22:35
DX: N39.0 Urinary tract infection, site not specified (principal); F17.210 Nicotine dependence, cigarettes, uncomplicated; Z20.822 Contact with and (suspected) exposure to COVID-19
CPT/HCPCS: 36415; 71045; 80053; 81001; 83880; 84484; 85025; 85610; 85730; 87077; 87086; 87186; 93005; 96365; J0696

== ENCOUNTER 2023-07-24 10:54 | Emergency (ER) | payer OTHER ==
[2023-07-24 11:30] LABS: Bilirubin Negative (Negative); Blood, Urine 3+ (Negative); CAUTI Indications for Culture Dysuria,urgency,freq; Glucose, Urine (Dipstick) Normal (Negative); Ketone, Urine Negative (Negative); Leukocyte 500 Leu/uL (Negative); Nitrite Negative (Negative); Protein, Urine (Dipstick) 200 mg/dL (Neg-Trace); RBC/HPF Greater than 50 HPF (0-3); Specific Gravity, Urine 1.018 (1.002-1.036); Squamous Epithelial None Seen HPF (0-3); Urobilinogen Normal mg/dL (Less than 2); WBC/HPF Greater than 50 HPF (0-3)
[2023-07-24 11:50] LABS: Bacteria/HPF 1+ HPF (None Seen); Clarity Turbid (Clear); Yeast-Budding None Seen HPF (None Seen)
[2023-07-24 11:53] LABS: Urine Culture Reflex Yes Yes
[2023-07-24 12:04] LABS: #Basophils 0.1 thou/uL (0.0-0.2); #Monocytes 0.6 thou/uL (0.11-0.59); %Basophils 0.8 % (0.0-1.0); %Eosinophils 9.5 % (0.0-10.0); %Lymphocytes 8.9 % (21.0-51.0); %Monocytes 5.4 % (0.0-10.0); %Neutrophils 75.1 % (42.0-75.0); Hematocrit 33.2 % (42.0-52.0); Hemoglobin 10.8 g/dL (14.0-18.0); Mean Corpuscular HGB CONC 32.5 g/dL (32.0-36.0); Mean Corpuscular Hemoglobin 30.3 pg (27.0-31.0); Mean Platelet Volume 8.8 fL (7.4-10.4); Platelet Count 357 10x3/uL (130-400); RBC Distribution Width 13.3 % (11.5-14.5); Red Blood Cell (RBC) Count 3.57 mill/uL (4.70-6.10); White Blood Cell (WBC) Count 10.6 10x3/uL (4.8-10.8)
[2023-07-24 12:29] LABS: ALT (SGPT) 30 U/L (8-55); AST (SGOT) 18 U/L (5-34); Albumin 3.6 g/dL (3.5-5.0); Alkaline Phosphatase 70 U/L (40-110); Anion Gap 10 mmol/L (10-20); BUN (Urea Nitrogen) 11 mg/dL (8.4-25.7); Bilirubin, Total 0.2 mg/dL (0.2-1.2); Calc. Creatinine Clearance 0 mL/min (70-130); Carbon Dioxide 28 mmol/L (22-29); Chloride 104 mmol/L (98-107); Estimated GFR 74; Globulin 3.2 g/dL (2.4-3.5); Glucose 108 mg/dL (70-105); Potassium 3.7 mmol/L (3.5-5.1); Protein, Total 6.8 g/dL (6.0-8.3); Sodium 138 mmol/L (136-145)
[2023-07-24 13:00] LABS: SARS-CoV-2 NAA Rapid Test Not Detected (NotDetected)
[2023-07-24] MEDS ORDERED: HYDROcodone/Acetaminophen 7.5/325 mg Tablet ONE (16:06)
== END 2023-07-24 16:09 | disposition home or self-care (01) ==
LOC: ERS 10:54
DX: R30.0 Dysuria (principal); Z20.822 Contact with and (suspected) exposure to COVID-19; Z87.891 Personal history of nicotine dependence
CPT/HCPCS: 36415; 74176; 80053; 81001; 85025; 87086; U0002

== ENCOUNTER 2023-08-01 15:19 | Emergency (ER) | payer OTHER ==
[2023-08-01 17:23] LABS: Bilirubin Unable to Interpret (Negative); Blood, Urine Unable to Interpret (Negative); Clarity Hazy (Clear); Glucose, Urine (Dipstick) Unable to Interpret mg/dL (Negative); Ketone, Urine Unable to Interpret mg/dL (Negative); Leukocyte Unable to Interpret Leu/uL (Negative); Nitrite Unable to Interpret (Negative); Protein, Urine (Dipstick) Unable to Interpret mg/dL (Neg-Trace); Specific Gravity, Urine 1.019 (1.002-1.036); Urobilinogen UNABLE TO INTERPRET mg/dL (Less than 2); pH, Urine 7.3 (5.0-9.0)
[2023-08-01 17:25] LABS: Bacteria/HPF 2+ HPF (None Seen); CAUTI Indications for Culture Dysuria,urgency,freq; Squamous Epithelial 0-3 HPF (0-3); WBC/HPF Greater than 50 HPF (0-3)
[2023-08-01 17:26] LABS: Urine Culture Reflex Yes Yes
== END 2023-08-01 17:14 | disposition home or self-care (01) ==
LOC: ERS 15:19
DX: R33.9 Retention of urine, unspecified (principal); L03.115 Cellulitis of right lower limb; L03.116 Cellulitis of left lower limb; Z87.891 Personal history of nicotine dependence
CPT/HCPCS: 51702; 81001; 87086

== ENCOUNTER 2023-08-02 06:34 | Emergency (ER) | payer OTHER ==
[2023-08-02] MEDS ORDERED: Lidocaine 2% 6 ML (Jelly) SYR TOP SCH (08:30)
[2023-08-02] MEDS ORDERED: HYDROcodone/Acetaminophen 5/325 mg Tablet ONE (11:19)
== END 2023-08-02 15:21 | disposition home or self-care (01) ==
LOC: ERS 06:34
DX: T83.098A Other mechanical complication of other urinary catheter, initial encounter (principal); Z87.891 Personal history of nicotine dependence
CPT/HCPCS: 99283

== ENCOUNTER 2023-09-11 13:40 | Emergency (ER) | payer OTHER, MEDICAID | END 2023-09-11 17:18 | disposition home or self-care (01) | LOC: ERS 13:40 | DX: N28.9 Disorder of kidney and ureter, unspecified (principal); Z87.891 Personal history of nicotine dependence | CPT/HCPCS: 74176 ==

== ENCOUNTER 2023-09-30 14:09 | Emergency (ER) | payer OTHER, MEDICAID ==
[2023-09-30 14:45] LABS: Bilirubin Unable to Interpret (Negative); Blood, Urine Unable to Interpret (Negative); Clarity Hazy (Clear); Glucose, Urine (Dipstick) Unable to Interpret mg/dL (Negative); Ketone, Urine Unable to Interpret mg/dL (Negative); Leukocyte Unable to Interpret Leu/uL (Negative); Nitrite Unable to Interpret (Negative); Protein, Urine (Dipstick) Unable to Interpret mg/dL (Neg-Trace); Specific Gravity, Urine 1.013 (1.002-1.036); Urobilinogen UNABLE TO INTERPRET mg/dL (Less than 2); pH, Urine 6.1 (5.0-9.0)
[2023-09-30 14:50] LABS: Bacteria/HPF 2+ HPF (None Seen); CAUTI Indications for Culture Dysuria,urgency,freq; RBC/HPF 0-3 HPF (0-3); Squamous Epithelial None Seen HPF (0-3); Urine Culture Reflex Yes Yes
[2023-09-30 16:55] LABS: #Basophils 0.1 thou/uL (0.0-0.2); #Eosinphils 0.3 thou/uL (0.0-0.7); #Monocytes 0.8 thou/uL (0.11-0.59); #Neutrophils 5.5 thou/uL (1.40-6.50); %Basophils 1.2 % (0.0-1.0); %Eosinophils 3.4 % (0.0-10.0); %Lymphocytes 8.1 % (21.0-51.0); %Neutrophils 75.7 % (42.0-75.0); Hematocrit 30.2 % (42.0-52.0); Hemoglobin 10.4 g/dL (14.0-18.0); Mean Corpuscular HGB CONC 34.4 g/dL (32.0-36.0); Mean Corpuscular Hemoglobin 29.5 pg (27.0-31.0); Mean Corpuscular Volume 85.8 fl (78.0-98.0); Mean Platelet Volume 8.9 fL (7.4-10.4); Platelet Count 340 10x3/uL (130-400); RBC Distribution Width 15.9 % (11.5-14.5); Red Blood Cell (RBC) Count 3.52 mill/uL (4.70-6.10); White Blood Cell (WBC) Count 7.3 10x3/uL (4.8-10.8)
[2023-09-30 17:20] LABS: ALT (SGPT) 42 U/L (8-55); AST (SGOT) 40 U/L (5-34); Albumin 3.5 g/dL (3.5-5.0); Alkaline Phosphatase 79 U/L (40-110); Anion Gap 14 mmol/L (10-20); BUN (Urea Nitrogen) 17 mg/dL (8.4-25.7); Bilirubin, Total 0.6 mg/dL (0.2-1.2); Calc. Creatinine Clearance 0 mL/min (70-130); Calcium 8.9 mg/dL (7.8-10.44); Carbon Dioxide 24 mmol/L (22-29); Chloride 101 mmol/L (98-107); Estimated GFR 70; Globulin 3.7 g/dL (2.4-3.5); Glucose 95 mg/dL (70-105); Potassium 3.6 mmol/L (3.5-5.1); Protein, Total 7.2 g/dL (6.0-8.3); Sodium 135 mmol/L (136-145)
[2023-09-30] MEDS ORDERED: Cefdinir 300 MG CAP PO SCH (19:15)
== END 2023-09-30 19:25 | disposition home or self-care (01) ==
LOC: ERS 14:09
DX: N39.0 Urinary tract infection, site not specified (principal); Z85.51 Personal history of malignant neoplasm of bladder; Z87.891 Personal history of nicotine dependence
CPT/HCPCS: 36415; 80053; 81001; 83605; 85025; 87077; 87086; 87186; 99283

== ENCOUNTER → 2023-10-20 | Day surgery (SDC) | payer MEDICAID, OTHER ==
[~2023-10-20] MED LIST changes: +FLU VACC QS2023-24(6MOS UP)/PF 60 MCG/0.5 ML SYRINGE IM ONE; +Iopamidol 300 61% 100 ML VIAL FS ONE; -Iopamidol-370 76% 500 ML MDV (1 ML CHARGE) ONE
== END ==
LOC: SPEC 06:29
PROVIDERS: ATTEND Urology
PROC: 0T25X0Z Change Drainage Device in Kidney, External Approach (ICD-10-PCS; principal; 2023-10-20)
DX: C79.10 Secondary malignant neoplasm of unspecified urinary organs (principal); C67.9 Malignant neoplasm of bladder, unspecified; R33.9 Retention of urine, unspecified
CPT/HCPCS: 50435; C1729; Q9967

== ENCOUNTER 2023-12-08 08:31 | Outpatient (CLI) | payer OTHER | END 2023-12-08 08:32 | disposition home or self-care (01) | LOC: BICULT 08:31 | PROVIDERS: ATTEND Urology | DX: N13.30 Unspecified hydronephrosis (principal); N32.89 Other specified disorders of bladder | CPT/HCPCS: 76770 ==

== ENCOUNTER 2023-12-22 08:47 | Outpatient (CLI) | payer OTHER ==
[2023-12-22] MEDS ORDERED: Iopamidol-370 76% 500 ML MDV (1 ML CHARGE) ONE (11:50)
== END 2023-12-22 08:48 | disposition home or self-care (01) ==
LOC: BICCT 08:47
PROVIDERS: ATTEND Internal Medicine Hematology & Oncology
DX: C67.4 Malignant neoplasm of posterior wall of bladder (principal); R91.8 Other nonspecific abnormal finding of lung field; N32.89 Other specified disorders of bladder
CPT/HCPCS: 71260; 74177; Q9967

== ENCOUNTER 2024-12-16 08:19 | Outpatient (CLI) | payer OTHER ==
[2024-12-16] MEDS ORDERED: Iopamidol 370 76% 100 ML VIAL ONE (13:40)
== END 2024-12-16 08:20 | disposition home or self-care (01) ==
LOC: BICCT 08:19
PROVIDERS: ATTEND Internal Medicine Hematology & Oncology
DX: C67.4 Malignant neoplasm of posterior wall of bladder (principal); N32.81 Overactive bladder; R91.1 Solitary pulmonary nodule; N32.89 Other specified disorders of bladder
CPT/HCPCS: 71270; 74178; Q9967

== ENCOUNTER 2025-07-04 10:34 | Outpatient (CLI) | payer OTHER | END 2025-07-04 10:35 | disposition home or self-care (01) | DX: G62.9 Polyneuropathy, unspecified (principal); R26.89 Other abnormalities of gait and mobility ==